=== PATIENT | female | born 1960 | race Caucasian/White ===

== ENCOUNTER → 2017-12-15 | Outpatient (CLI) | payer OTHER ==
[~2017-12-15] MED LIST: AMITRIPTYLINE25 MG PO; CALCIUM + D 5001 TAB PO; CEPHALEXIN500 M1 PO; CIPRO500 MG PO; CLINDAMYCIN HC300 MG PO; ENJUVIA0.625 MG PO; ENTOCORT3 MG PO; HYDROCODONE BIT1 T11 PO; IBUPROFEN200 M2 PO; IMURAN50 MG PO; MELOXICAM15 MG PO; MONODOX50 MG PO; NIZATIDINE150 MG PO; PENICILLIN V500 MG PO; PREDNISONE10 MG PO; SPIRONOLACTONE/1 TAB PO; SYNTHROID0.15 MG PO; THYROXIN PO; VICODIN 5/500 505 MG PO; VOLTAREN75 MG PO; ZOFRAN ODT4 MG SL; ZOLPIDEM10 M1 PO; ZOLPIDEM10 MG PO
[2017-12-15 14:47] LABS: BUN 19 mg/dl (7-24); CHLORIDE 107 mmol/L (98-107); CREATININE 0.94 mg/dL (0.55-1.02); POTASSIUM 4.1 mmol/L (3.5-5.1); SODIUM 143 mmol/L (136-145)
== END | disposition home or self-care (01) ==
LOC: LAB 14:09
PROVIDERS: Internal Medicine
DX: G45.8 Other transient cerebral ischemic attacks and related syndromes (principal); R20.2 Paresthesia of skin

== ENCOUNTER → 2017-12-22 | Outpatient (CLI) | payer OTHER | END | disposition home or self-care (01) | LOC: CT 12-21 13:00 → US 12-21 13:30 → CT 12:13 | DX: I65.23 Occlusion and stenosis of bilateral carotid arteries (principal) ==

== ENCOUNTER → 2017-12-23 | Outpatient (CLI) | payer OTHER | END | disposition home or self-care (01) | LOC: CARD 02:15 | DX: G45.8 Other transient cerebral ischemic attacks and related syndromes (principal) ==

== ENCOUNTER 2018-09-03 09:45 | Emergency (ER) | payer OTHER ==
[2018-09-03 10:10] LABS: BASO # 0.1 10*3/uL (0.0-0.1); BASO % 0.6 % (0.0-1.0); EOS # 0.1 10*3/uL (0.0-0.4); EOS % 1.4 % (1.0-4.0); HEMATOCRIT 42.5 % (37.0-47.0); HEMOGLOBIN 13.8 g/dl (12.0-16.0); LYMPH # 2.5 10*3/uL (1.3-4.4); MEAN CELL VOLUME 88.2 fl (81.0-99.0); MEAN CORPUSCULAR HGB 28.6 pg (27.0-31.0); MEAN CORPUSCULAR HGB CONC 32.5 g/dl (33.0-37.0); MONO # 0.7 10*3/uL (0.1-1.0); MONO % 8.2 % (3.0-9.0); NEUT # 5.2 10*3/uL (2.3-7.9); NEUT % 59.8 % (47.0-73.0); PLATELET COUNT AUTOMATED 201 10*3/uL (130-400); RED BLOOD COUNT 4.82 10*6/uL (4.10-5.10); RED CELL DISTRI WIDTH 14.4 % (0-14.5); WHITE BLOOD COUNT 8.6 10*3/uL (4.8-10.8)
[2018-09-03 10:18] LABS: ACT PARTIAL THROMBO TIME 29.5 SECONDS (20.8-31.5); INTERNATIONAL NORM RATIO 0.9 (2.0-3.5)
[2018-09-03 10:26] LABS: ALBUMIN 3.5 gm/dl (3.1-4.5); ALKALINE PHOSPHATASE 126 U/L (45-117); BUN 17 mg/dl (7-24); CHLORIDE 105 mmol/L (98-107); CREATININE 0.92 mg/dL (0.55-1.02); LIPASE 112 U/L (73-393); POTASSIUM 3.5 mmol/L (3.5-5.1); SGOT/AST 29 IU/L (3-35); SGPT/ALT 44 U/L (12-78); SODIUM 141 mmol/L (136-145)
[2018-09-03 12:00] LABS: BILIRUBIN 1+ (NEGATIVE); BLOOD 3+ (NEGATIVE); CLARITY SL CLOUDY (CLEAR); COLOR ORANGE (YELLOW); GLUCOSE TRACE (NEGATIVE); KETONE NEGATIVE (NEGATIVE); NITRITE POSITIVE (NEGATIVE); PH 6.5 (5.0-9.0); SPECIFIC GRAVITY <= 1.005 (1.005-1.030)
[2018-09-03 12:10] LABS: BACTERIA 3+; LEUKO ESTERASE TRACE (NEGATIVE); RBC 41-50 rbc/hpf (0-2); WBC 16-20 wbc/hpf (0-5)
== END 2018-09-03 13:31 | disposition short-term general hospital (02) ==
LOC: ED 09:45
PROVIDERS: Emergency Medicine
DX: N13.2 Hydronephrosis with renal and ureteral calculous obstruction (principal); R06.02 Shortness of breath; E66.01 Morbid (severe) obesity due to excess calories; Z90.710 Acquired absence of both cervix and uterus; Z88.2 Allergy status to sulfonamides; Z88.6 Allergy status to analgesic agent; Z91.040 Latex allergy status; Z79.2 Long term (current) use of antibiotics; Z79.899 Other long term (current) drug therapy

== ENCOUNTER → 2019-05-09 | Outpatient (CLI) | payer OTHER | END | disposition home or self-care (01) | LOC: RAD 15:53 | DX: Z96.0 Presence of urogenital implants (principal); N20.0 Calculus of kidney; Z90.49 Acquired absence of other specified parts of digestive tract ==

== ENCOUNTER → 2019-05-23 | Outpatient (CLI) | payer OTHER | END | disposition home or self-care (01) | LOC: RAD 14:15 | DX: N20.0 Calculus of kidney (principal); Z90.49 Acquired absence of other specified parts of digestive tract ==

== ENCOUNTER → 2019-05-24 | Outpatient (CLI) | payer OTHER ==
[2019-05-24 11:50] LABS: BILIRUBIN NEGATIVE (NEGATIVE); BLOOD NEGATIVE (NEGATIVE); CLARITY SL CLOUDY (CLEAR); COLOR YELLOW (YELLOW); GLUCOSE NEGATIVE (NEGATIVE); KETONE NEGATIVE (NEGATIVE); LEUKO ESTERASE 1+ (NEGATIVE); NITRITE NEGATIVE (NEGATIVE); UROBILINOGEN 0.2 E.U./dl (0.2-1.0)
[2019-05-24 11:55] LABS: BASO # 0.1 10*3/uL (0.0-0.1); BASO % 0.5 % (0.0-1.0); EOS # 0.1 10*3/uL (0.0-0.4); EOS % 0.6 % (1.0-4.0); HEMATOCRIT 41.6 % (37.0-47.0); LYMPH # 2.1 10*3/uL (1.3-4.4); MEAN CELL VOLUME 89.5 fl (81.0-99.0); MEAN CORPUSCULAR HGB CONC 31.3 g/dl (33.0-37.0); MEAN PLATELET VOLUME 10.4 fl (9.6-12.3); MONO # 0.8 10*3/uL (0.1-1.0); MONO % 7.3 % (3.0-9.0); NEUT # 7.5 10*3/uL (2.3-7.9); NEUT % 70.8 % (47.0-73.0); PLATELET COUNT AUTOMATED 212 10*3/uL (130-400); RED BLOOD COUNT 4.65 10*6/uL (4.10-5.10); WHITE BLOOD COUNT 10.6 10*3/uL (4.8-10.8)
[2019-05-24 12:16] LABS: ALBUMIN 3.6 gm/dl (3.1-4.5); ALKALINE PHOSPHATASE 113 U/L (45-117); BUN 18 mg/dl (7-24); CHLORIDE 109 mmol/L (98-107); CREATININE 0.74 mg/dL (0.55-1.02); POTASSIUM 4.1 mmol/L (3.5-5.1); SGOT/AST 23 IU/L (3-35); SGPT/ALT 32 U/L (12-78); SODIUM 143 mmol/L (136-145); T3 UPTAKE 36 % (31-39); THYROXINE (T4) TOTAL 13.7 ug/dl (4.8-13.9); TOTAL PROTEIN 7.9 gm/dL (6.4-8.2)
[2019-05-24 12:19] LABS: ALBUMIN 3.6 gm/dl (3.1-4.5); BILIRUBIN, DIRECT 0.2 mg/dL (0.0-0.2); TOTAL PROTEIN 7.7 gm/dL (6.4-8.2)
[2019-05-24 14:26] LABS: BACTERIA 1+; MUCOUS 1+; WBC 21-30 wbc/hpf (0-5)
== END | disposition home or self-care (01) ==
LOC: LAB 11:21
PROVIDERS: Internal Medicine Gastroenterology; Urology
DX: N20.0 Calculus of kidney (principal); R31.9 Hematuria, unspecified; K75.4 Autoimmune hepatitis

== ENCOUNTER → 2019-05-26 | Outpatient (CLI) | payer OTHER ==
[2019-06-02 15:05] LABS: BUSHITE 0.08 ratio (0.00-3.00); CALCIUM OXALATE 4.28 ratio (0.00-6.00); CALCIUM, URINE 4.8 mg/dL (Not Estab.); CALCIUM, URINE 87.6 mg/24 hr (100.0-300.0); CITRIC ACID (CITRATE) 635 mg/24 hr (320-1240); CREATININE, URINE 1012.9 mg/24 hr (800.0-1800.0); CREATININE, URINE 55.5 mg/dL (Not Estab.); MAGNESIUM, URINE 6.6 mg/dL (Not Estab.); OSMOLALITY, URINE 582 (300-900); SODIUM, URINE 127 mmol/L (Not Estab.); SODIUM, URINE 232 (39-258); STRUVITE 0.01 ratio (0.00-1.00); pH 24 HR URINE 5.2 (.)
== END | disposition home or self-care (01) ==
LOC: LAB 10:35
PROVIDERS: Urology
DX: N20.0 Calculus of kidney (principal); R31.9 Hematuria, unspecified

== ENCOUNTER → 2019-06-22 | Outpatient (CLI) | payer OTHER | END | disposition home or self-care (01) | LOC: CT 10:00 | DX: K43.9 Ventral hernia without obstruction or gangrene (principal); N20.0 Calculus of kidney; Z90.710 Acquired absence of both cervix and uterus; Z90.49 Acquired absence of other specified parts of digestive tract; Z90.89 Acquired absence of other organs ==

== ENCOUNTER 2020-06-08 06:17 | Inpatient (IN) | payer OTHER ==
[2020-06-08] VITALS (13 sets, daily range): BP systolic 115–168; BP diastolic 62–106
[~2020-06-08] VITALS: Ht 175.2 cm; Wt 135.9 kg
[~2020-06-08 06:17] MED LIST changes: +ALDACTONE25 MG PO; +AMITRIPTYLINE50 MG PO; +BUDESONIDE EC3 MG PO; +FAMOTIDINE40 MG PO; +HYDROCHLOROTHIA25 M1 PO; +KLOR-CON M1010 ME1 PO; +SYNTHROID,LEV175 MCG PO; +VITAMIN D350 MC2 PO; +ZOLPIDEM TART5 MG PO
[2020-06-08 07:22] LABS: HEMATOCRIT 51.9 % (37.0-47.0); MEAN CELL VOLUME 88.3 fl (81.0-99.0); MEAN CORPUSCULAR HGB 27.7 pg (27.0-31.0); MEAN CORPUSCULAR HGB CONC 31.4 g/dl (33.0-37.0); PLATELET COUNT AUTOMATED 259 10*3/uL (130-400); RED BLOOD COUNT 5.88 10*6/uL (4.10-5.10); RED CELL DISTRI WIDTH 14.6 % (0-14.5); WHITE BLOOD COUNT 20.5 10*3/uL (4.8-10.8)
[2020-06-08 07:34] LABS: ACT PARTIAL THROMBO TIME 27.3 SECONDS (20.0-32.1); INTERNATIONAL NORM RATIO 0.9 (2.0-3.5)
[2020-06-08 07:47] LABS: ATYPICAL LYMPHS 2 % (0-0); BASOPHILS 2 % (0-1); PLATELET SUFFICIENCY NORMAL (NORMAL); TOTAL CELLS COUNTED 100 #CELLS
[2020-06-08 07:49] LABS: ALBUMIN 4.1 gm/dl (3.1-4.5); CREATININE 1.21 mg/dL (0.55-1.02); POTASSIUM 3.4 mmol/L (3.5-5.1); TOTAL PROTEIN 8.7 gm/dL (6.4-8.2)
--- NOTE | 2020-06-08 08:18 | NUR ---
PT HAD LARGE EMESIS IN HER BED. DR. ARIAS AWARE. BED AND GOWN CHANGED. PT MEDICATED WITH ZOFRAN IV
--- NOTE | 2020-06-08 08:31 | NUR ---
PT TRANSPORTED TO CT.
--- NOTE | 2020-06-08 09:29 | NUR ---
PT C/O PAIN AND NAUSEA. MEDICATED WITH ZOFRAN AND DEMEROL PER PHYSICIAN ORDERS.
--- NOTE | 2020-06-08 09:36 | NUR ---
RESTING IN BED WITH EYES CLOSED. POX DROPPING TO 86% ON ROOM AIR WHILE SLEEPING. AROUSES EASILY. PLACED ON 2L NC.
--- NOTE | 2020-06-08 14:40 | NUR ---
PT RESTING IN BED WITH EYES CLOSED. RESPIRATIONS EASY AND REGULAR. CALL LIGHT IN PLACE.
--- NOTE | 2020-06-08 15:21 | NUR ---
CALLED CONSULT TO DR. HAGEN. MADE HIM AWARE OF ABNORMAL ECG.
--- NOTE | 2020-06-08 15:59 | NUR ---
PATIENT RESTING IN BED WITH EYES CLOSED. RESPIRATIONS EASY AND REGULAR. CALL LIGHT IN REACH.
--- NOTE | 2020-06-08 19:14 | NUR ---
RECEIVED REPORT FROM ETHAN MOLINA.
--- NOTE | 2020-06-08 20:25 | NUR ---
A 59, admitted to 5E, under the services of HORTENCIA Berger DO with a diagnosis of BOWEL OBSTRUCTION. Chief complaint is ABDOMINAL PAIN. Patient arrived via ambulatory from ER. Monitor applied. Initial assessment completed. Vital signs taken and recorded. HORTENCIA BERGER DO notified of admission to the unit. Orders received. See assessment for past medical history, medications and allergies. Patient and/or family oriented to unit. visitation policy reviewed. Clothing/patient valuable form completed. MAHENDRA SIEGEL
--- NOTE | 2020-06-08 22:41 | NUR ---
PATIENT MEDICATED WITH DILAUDID FOR COMPLAINTS OF ABDOMINAL PAIN AND ZOFRAN FOR COMPLAINTS OF NAUSEA. WILL MONITOR FOR EFFECTIVENESS. CALL LIGHT IN REACH.
--- NOTE | 2020-06-08 23:04 | NUR ---
MORPHINE AND ZOFRAN EFFECTIVE AT THIS TIME. WILL CONTINUE TO MONITOR.
[2020-06-09] VITALS: BP 145/78
--- NOTE | 2020-06-09 01:33 | NUR ---
PATIENT MEDICATED WITH DILAUDID FOR COMPLAINTS OF ABDOMINAL PAIN AND PHENERGAN FOR COMPLAINTS OF NAUSEA. WILL MONITOR FOR EFFECTIVENESS. CALL LIGHT IN REACH.
--- NOTE | 2020-06-09 02:16 | NUR ---
DILAUDID EFFECTIVE AT THIS TIME. PATIENT SLEEPING IN BED. NO SIGNS OR SYMPTOMS OF DISTRESS NOTED. CALL LIGHT IN REACH.
[2020-06-09 06:39] LABS: HEMATOCRIT 47.4 % (37.0-47.0); MEAN CELL VOLUME 91.3 fl (81.0-99.0); MEAN CORPUSCULAR HGB 28.1 pg (27.0-31.0); MEAN CORPUSCULAR HGB CONC 30.8 g/dl (33.0-37.0); MEAN PLATELET VOLUME 10.2 fl (9.6-12.3); PLATELET COUNT AUTOMATED 236 10*3/uL (130-400); RED BLOOD COUNT 5.19 10*6/uL (4.10-5.10); RED CELL DISTRI WIDTH 15.4 % (0-14.5); WHITE BLOOD COUNT 12.8 10*3/uL (4.8-10.8)
[2020-06-09 06:56] LABS: CREATININE 1.15 mg/dL (0.55-1.02); POTASSIUM 3.4 mmol/L (3.5-5.1)
[2020-06-09 08:00] VITALS: BP 136/88
[2020-06-09 08:26] LABS: ATYPICAL LYMPHS 5 % (0-0); PLATELET SUFFICIENCY NORMAL (NORMAL); TOTAL CELLS COUNTED 100 #CELLS
--- NOTE | 2020-06-09 09:40 | NUR ---
PT MEDICATED WITH ZOFRAN FOR C/O NAUSEA. WILL MONITOR
--- NOTE | 2020-06-09 10:00 | NUR ---
NG CLAMPED ORDERED
--- NOTE | 2020-06-09 10:10 | NUR ---
PT STATES THAT ALLEN HELPED JEAN MONITOR
[2020-06-09 12:00] VITALS: BP 155/94
--- NOTE | 2020-06-09 15:09 | NUR ---
DR MAGDALENO NOTIFIED THAT PT REFUSED 2ND K RUN
[2020-06-09 16:00] VITALS: BP 146/75
--- NOTE | 2020-06-09 16:45 | NUR ---
PT RESTING IN BED NO DISTRESS NOTED. WILL MONITOR
--- NOTE | 2020-06-09 18:05 | NUR ---
PT REQUESTED AND GIVEN ZOFRAN FOR C/O LITTLE NAUSEA. WILL MONITOR
--- NOTE | 2020-06-09 18:50 | NUR ---
PT STATES THAT ZOFRAN IS EFFECTIVE. WILL MONITOR
[2020-06-09 20:00] VITALS: BP 133/80
[2020-06-10] VITALS: BP 137/75
[2020-06-10 08:00] VITALS: BP 133/79
[2020-06-10 09:03] LABS: BASO # 0.1 10*3/uL (0.0-0.1); BASO % 0.6 % (0.0-1.0); EOS # 0.2 10*3/uL (0.0-0.4); EOS % 1.9 % (1.0-4.0); HEMATOCRIT 47.1 % (37.0-47.0); LYMPH # 2.4 10*3/uL (1.3-4.4); LYMPH % 21.4 % (27.0-41.0); MEAN CELL VOLUME 90.9 fl (81.0-99.0); MEAN CORPUSCULAR HGB 27.6 pg (27.0-31.0); MEAN CORPUSCULAR HGB CONC 30.4 g/dl (33.0-37.0); MEAN PLATELET VOLUME 10.5 fl (9.6-12.3); MONO # 1.3 10*3/uL (0.1-1.0); MONO % 11.8 % (3.0-9.0); NEUT # 7.2 10*3/uL (2.3-7.9); NEUT % 63.3 % (47.0-73.0); PLATELET COUNT AUTOMATED 200 10*3/uL (130-400); RED BLOOD COUNT 5.18 10*6/uL (4.10-5.10); WHITE BLOOD COUNT 11.3 10*3/uL (4.8-10.8)
[2020-06-10 09:18] LABS: CHLORIDE 109 mmol/L (98-107); CREATININE 0.86 mg/dL (0.55-1.02); POTASSIUM 3.8 mmol/L (3.5-5.1); SODIUM 140 mmol/L (136-145)
[2020-06-10 09:21] LABS: BUN 16 mg/dl (7-24)
--- NOTE | 2020-06-10 10:00 | NUR ---
NG TUBE REMOVED PER ORDER. PT TOLERATED WELL.
[2020-06-10 12:00] VITALS: BP 133/82
--- NOTE | 2020-06-10 12:34 | NUR ---
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 Patient states lives at HOME with . There are NO steps in the home. Physician: EDI PINK Pharmacy: [facility] [place] [facility] services: NONE Patient's level of ADLs: INDEPENDENT Patient has working utilities: YES DME: NONE Follow-up physician's appointment after d/c: WILL BE MADE BY HOSPITALIST NURSE DIRECTOR ON DISCHARGE Does patient want to access PORTAL?: NO Discharge plan PT LIVES AT HOME WITH HER AND KIDS AND IS INDEPENDENT IN HER CARE. DENIES SHE WILL HAVE ANY NEEDS ON DISCHARGE. PLAN IS TO RETURN HOME WHEN MEDICALLY STABLE. WILL CONTINUE TO FOLLOW. STATES HER WILL TAKE HER HOME.. DAYSI SOTO
--- NOTE | 2020-06-10 14:45 | NUR ---
STEVE RN TO THE FLOOR TO START IV ON PATIENT. NEW IV STARTED IN RIGHT WRIST WITHOUT INCIDENT. PT TOLERATED WELL.
--- NOTE | 2020-06-10 17:13 | NUR ---
Discharge instructions reviewed with patient/family. Patient receptive and verbalizes understanding. Follow-up care arranged. Written instructions given to patient/family. CHI DORSEY
== END 2020-06-10 17:13 | disposition home or self-care (01) | DRG 388 ==
LOC: ED 06:17 → EDHOLD 11:09 → 5E 11:09
PROVIDERS: Emergency Medicine; Internal Medicine; ADMIT Internal Medicine; ATTEND Internal Medicine
PROC: 0D9670Z Drainage of Stomach with Drainage Device, Via Natural or Artificial Opening (ICD-10-PCS; principal; 2020-06-08)
DX: K56.690 Other partial intestinal obstruction (principal); N17.0 Acute kidney failure with tubular necrosis; R65.10 Systemic inflammatory response syndrome (SIRS) of non-infectious origin without acute organ dysfunction; E87.2 Acidosis; Z68.41 Body mass index [BMI] 40.0-44.9, adult; E87.6 Hypokalemia; R73.9 Hyperglycemia, unspecified; R00.1 Bradycardia, unspecified; R74.01 Elevation of levels of liver transaminase levels; I10 Essential (primary) hypertension; E03.9 Hypothyroidism, unspecified; G47.00 Insomnia, unspecified; E83.41 Hypermagnesemia; E66.01 Morbid (severe) obesity due to excess calories; Z82.3 Family history of stroke; Z88.2 Allergy status to sulfonamides; Z88.8 Allergy status to other drugs, medicaments and biological substances; Z91.040 Latex allergy status; Z79.899 Other long term (current) drug therapy; Z93.3 Colostomy status; Z90.49 Acquired absence of other specified parts of digestive tract; Z90.710 Acquired absence of both cervix and uterus; Z90.6 Acquired absence of other parts of urinary tract

== ENCOUNTER → 2021-03-24 | Outpatient (CLI) | payer OTHER | END | disposition home or self-care (01) | LOC: CARD 08:01 | PROVIDERS: ATTEND Physician Assistant | DX: Z01.818 Encounter for other preprocedural examination (principal); I34.0 Nonrheumatic mitral (valve) insufficiency; R94.31 Abnormal electrocardiogram [ECG] [EKG] ==

== ENCOUNTER 2021-12-31 10:15 | Observation (INO) | payer OTHER ==
[2021-12-31] VITALS (10 sets, daily range): BP systolic 125–142; BP diastolic 74–95
[~2021-12-31] VITALS: Ht 172.7 cm; Wt 129.4 kg
[2021-12-31 15:26] LABS: BASO # 0.1 10*3/uL (0.0-0.1); BASO % 0.4 % (0.0-1.0); EOS % 0.2 % (1.0-4.0); HEMATOCRIT 47.4 % (37.0-47.0); LYMPH # 1.4 10*3/uL (1.3-4.4); LYMPH % 9.4 % (27.0-41.0); MEAN CELL VOLUME 88.4 fl (81.0-99.0); MEAN CORPUSCULAR HGB CONC 31.6 g/dl (33.0-37.0); MEAN PLATELET VOLUME 9.7 fl (9.6-12.3); MONO # 1.3 10*3/uL (0.1-1.0); NEUT # 11.9 10*3/uL (2.3-7.9); NEUT % 79.7 % (47.0-73.0); PLATELET COUNT AUTOMATED 223 10*3/uL (130-400); RED BLOOD COUNT 5.36 10*6/uL (4.10-5.10); RED CELL DISTRI WIDTH 16.9 % (0-14.5); WHITE BLOOD COUNT 14.9 10*3/uL (4.8-10.8)
[2021-12-31 15:40] LABS: ALKALINE PHOSPHATASE 103 U/L (45-117); BUN 21 mg/dl (7-24); CHLORIDE 103 mmol/L (98-107); CREATININE 1.06 mg/dL (0.55-1.02); POTASSIUM 3.8 mmol/L (3.5-5.1); SGOT/AST 34 IU/L (3-35); SGPT/ALT 58 U/L (12-78); SODIUM 139 mmol/L (136-145); TOTAL PROTEIN 7.9 gm/dL (6.4-8.2)
[2021-12-31] MEDS ORDERED: ORAZINC50 MG PO (16:12)
[2021-12-31] MEDS ORDERED: METOPROLOL SUCC25 M2 PO (16:12)
[2021-12-31] MEDS ORDERED: MELOXICAM15 MG PO (16:14)
[2022-01-01 06:10] LABS: HEMATOCRIT 44.8 % (37.0-47.0); MEAN CELL VOLUME 87.3 fl (81.0-99.0); MEAN CORPUSCULAR HGB 27.7 pg (27.0-31.0); MEAN CORPUSCULAR HGB CONC 31.7 g/dl (33.0-37.0); PLATELET COUNT AUTOMATED 217 10*3/uL (130-400); RED BLOOD COUNT 5.13 10*6/uL (4.10-5.10); RED CELL DISTRI WIDTH 16.7 % (0-14.5); WHITE BLOOD COUNT 13.5 10*3/uL (4.8-10.8)
[2022-01-01 06:11] LABS: MANUAL DIFF REFLEX YES
[2022-01-01 06:27] LABS: CREATININE 1.6 mg/dL (0.55-1.02); POTASSIUM 4.2 mmol/L (3.5-5.1); TOTAL PROTEIN 7.2 gm/dL (6.4-8.2)
[2022-01-01 06:56] LABS: BURR CELLS FEW; POLYCHROMASIA SLIGHT; TOTAL CELLS COUNTED 100 #CELLS
[2022-01-01 06:57] LABS: PLATELET SUFFICIENCY NORMAL (NORMAL); VACUOLATION OF NEUTROPHILS SLIGHT
[2022-01-01 08:00] VITALS: BP 180/102
[2022-01-01 12:00] VITALS: BP 152/85
[2022-01-01 16:00] VITALS: BP 139/75
[2022-01-01 20:00] VITALS: BP 157/101
[2022-01-02] VITALS: BP 155/89
[2022-01-02 06:12] LABS: CREATININE 1.76 mg/dL (0.55-1.02); HEMATOCRIT 43.6 % (37.0-47.0); MEAN CELL VOLUME 89.5 fl (81.0-99.0); MEAN CORPUSCULAR HGB 27.7 pg (27.0-31.0); MEAN PLATELET VOLUME 9.8 fl (9.6-12.3); PLATELET COUNT AUTOMATED 199 10*3/uL (130-400); POTASSIUM 3.5 mmol/L (3.5-5.1); RED BLOOD COUNT 4.87 10*6/uL (4.10-5.10); RED CELL DISTRI WIDTH 16.7 % (0-14.5); WHITE BLOOD COUNT 11.8 10*3/uL (4.8-10.8)
[2022-01-02 06:14] LABS: MANUAL DIFF REFLEX YES
[2022-01-02 07:02] LABS: PLATELET SUFFICIENCY NORMAL (NORMAL); POLYCHROMASIA SLIGHT; TOTAL CELLS COUNTED 100 #CELLS
[2022-01-02 08:00] VITALS: BP 132/95
[2022-01-02 12:00] VITALS: BP 152/71
[2022-01-02 16:00] VITALS: BP 151/95
[2022-01-02 20:00] VITALS: BP 145/69
[2022-01-03] VITALS: BP 143/91
[2022-01-03 05:21] LABS: CREATININE 1.45 mg/dL (0.55-1.02); POTASSIUM 3.5 mmol/L (3.5-5.1)
[2022-01-03 06:05] LABS: BASO # 0.1 10*3/uL (0.0-0.1); BASO % 0.5 % (0.0-1.0); EOS # 0.2 10*3/uL (0.0-0.4); EOS % 2.2 % (1.0-4.0); HEMATOCRIT 39.9 % (37.0-47.0); LYMPH # 1.7 10*3/uL (1.3-4.4); LYMPH % 17.5 % (27.0-41.0); MEAN CELL VOLUME 89.3 fl (81.0-99.0); MEAN CORPUSCULAR HGB CONC 31.3 g/dl (33.0-37.0); MEAN PLATELET VOLUME 10.1 fl (9.6-12.3); NEUT # 6.4 10*3/uL (2.3-7.9); NEUT % 67.3 % (47.0-73.0); PLATELET COUNT AUTOMATED 195 10*3/uL (130-400); RED BLOOD COUNT 4.47 10*6/uL (4.10-5.10); RED CELL DISTRI WIDTH 16.2 % (0-14.5); WHITE BLOOD COUNT 9.5 10*3/uL (4.8-10.8)
[2022-01-03 08:00] VITALS: BP 163/60
[2022-01-03 12:00] VITALS: BP 159/69
[2022-01-03] MEDS ORDERED: METRONIDAZOLE500 M1 PO ×2 (15:28)
[2022-01-03] MEDS ORDERED: LEVOFLOXACIN750 M2 PO (15:28)
[2022-01-03 16:00] VITALS: BP 137/65
[2022-01-03 20:00] VITALS: BP 159/56
[2022-01-04] VITALS: BP 143/63
[2022-01-04 05:59] LABS: CREATININE 1.3 mg/dL (0.55-1.02); POTASSIUM 3.4 mmol/L (3.5-5.1)
[2022-01-04 06:10] LABS: HEMATOCRIT 38.8 % (37.0-47.0); MEAN CELL VOLUME 88.8 fl (81.0-99.0); MEAN CORPUSCULAR HGB 28.1 pg (27.0-31.0); MEAN CORPUSCULAR HGB CONC 31.7 g/dl (33.0-37.0); MEAN PLATELET VOLUME 10.5 fl (9.6-12.3); PLATELET COUNT AUTOMATED 205 10*3/uL (130-400); RED BLOOD COUNT 4.37 10*6/uL (4.10-5.10); WHITE BLOOD COUNT 7.9 10*3/uL (4.8-10.8)
[2022-01-04 06:23] LABS: MANUAL DIFF REFLEX YES
[2022-01-04 06:39] LABS: TOTAL CELLS COUNTED 100 #CELLS
[2022-01-04 06:40] LABS: PLATELET SUFFICIENCY NORMAL (NORMAL); POLYCHROMASIA SLIGHT
[2022-01-04 08:00] VITALS: BP 123/66
== END 2022-01-04 11:45 | disposition home or self-care (01) ==
LOC: ED 10:15 → EDHOLD 14:46 → 4E 14:46
PROVIDERS: Family Medicine; Internal Medicine; ADMIT Internal Medicine; ATTEND Internal Medicine
DX: K56.600 Partial intestinal obstruction, unspecified as to cause (principal); S31.109A Unspecified open wound of abdominal wall, unspecified quadrant without penetration into peritoneal cavity, initial encounter; R11.2 Nausea with vomiting, unspecified; E66.9 Obesity, unspecified; R00.1 Bradycardia, unspecified; R10.9 Unspecified abdominal pain; D72.829 Elevated white blood cell count, unspecified; E87.2 Acidosis; E44.0 Moderate protein-calorie malnutrition; E87.8 Other disorders of electrolyte and fluid balance, not elsewhere classified; I10 Essential (primary) hypertension; N17.0 Acute kidney failure with tubular necrosis; R73.9 Hyperglycemia, unspecified; Z79.899 Other long term (current) drug therapy; Z79.01 Long term (current) use of anticoagulants

== ENCOUNTER → 2022-01-08 | Outpatient (CLI) | payer OTHER ==
[~2022-01-08] MED LIST changes: +LEVOFLOXACIN750 M2 PO; +METOPROLOL SUCC25 M2 PO; +METRONIDAZOLE500 M1 PO; +ORAZINC50 MG PO
== END | disposition home or self-care (01) ==
LOC: WOUNDCARE 01:46
PROVIDERS: ATTEND Nurse Practitioner Family
DX: S81.801A Unspecified open wound, right lower leg, initial encounter (principal); L97.812 Non-pressure chronic ulcer of other part of right lower leg with fat layer exposed; L89.893 Pressure ulcer of other site, stage 3; E66.9 Obesity, unspecified; E03.9 Hypothyroidism, unspecified; G47.00 Insomnia, unspecified; I10 Essential (primary) hypertension; K21.9 Gastro-esophageal reflux disease without esophagitis; F32.9 Major depressive disorder, single episode, unspecified; Z68.41 Body mass index [BMI] 40.0-44.9, adult; Z90.49 Acquired absence of other specified parts of digestive tract; Z93.3 Colostomy status; Z90.710 Acquired absence of both cervix and uterus; X58.XXXA Exposure to other specified factors, initial encounter; Y93.89 Activity, other specified; Y92.89 Other specified places as the place of occurrence of the external cause; Y99.8 Other external cause status

== ENCOUNTER → 2022-01-16 | Outpatient (CLI) | payer OTHER | END | disposition home or self-care (01) | LOC: WOUNDCARE 07:15 | PROVIDERS: ATTEND Nurse Practitioner Family | DX: S81.801D Unspecified open wound, right lower leg, subsequent encounter (principal); L97.812 Non-pressure chronic ulcer of other part of right lower leg with fat layer exposed; L89.893 Pressure ulcer of other site, stage 3; E66.9 Obesity, unspecified; E03.9 Hypothyroidism, unspecified; G47.00 Insomnia, unspecified; I10 Essential (primary) hypertension; K21.9 Gastro-esophageal reflux disease without esophagitis; F32.9 Major depressive disorder, single episode, unspecified; Z90.49 Acquired absence of other specified parts of digestive tract; Z93.3 Colostomy status; Z90.710 Acquired absence of both cervix and uterus; X58.XXXD Exposure to other specified factors, subsequent encounter ==

== ENCOUNTER → 2022-01-22 | Outpatient (CLI) | payer OTHER | LOC: WOUNDCARE 03:09 | PROVIDERS: ATTEND Nurse Practitioner Family | DX: S81.801D Unspecified open wound, right lower leg, subsequent encounter (principal); L97.812 Non-pressure chronic ulcer of other part of right lower leg with fat layer exposed; L89.893 Pressure ulcer of other site, stage 3; E66.9 Obesity, unspecified; E03.9 Hypothyroidism, unspecified; G47.00 Insomnia, unspecified; I10 Essential (primary) hypertension; K21.9 Gastro-esophageal reflux disease without esophagitis; F32.9 Major depressive disorder, single episode, unspecified; Z90.49 Acquired absence of other specified parts of digestive tract; Z93.3 Colostomy status; Z90.710 Acquired absence of both cervix and uterus; Z68.41 Body mass index [BMI] 40.0-44.9, adult; X58.XXXD Exposure to other specified factors, subsequent encounter ==

== ENCOUNTER → 2022-01-27 | Outpatient (CLI) | payer OTHER | END | disposition home or self-care (01) | LOC: US 12:41 | PROVIDERS: ATTEND Nurse Practitioner Family | DX: L97.919 Non-pressure chronic ulcer of unspecified part of right lower leg with unspecified severity (principal) ==

== ENCOUNTER → 2022-01-29 | Outpatient (CLI) | payer OTHER | END | disposition home or self-care (01) | LOC: WOUNDCARE 01:26 | PROVIDERS: ATTEND Nurse Practitioner Family | DX: S81.801D Unspecified open wound, right lower leg, subsequent encounter (principal); L97.812 Non-pressure chronic ulcer of other part of right lower leg with fat layer exposed; L89.893 Pressure ulcer of other site, stage 3; E66.9 Obesity, unspecified; E03.9 Hypothyroidism, unspecified; G47.00 Insomnia, unspecified; I10 Essential (primary) hypertension; K21.9 Gastro-esophageal reflux disease without esophagitis; F32.9 Major depressive disorder, single episode, unspecified; Z90.49 Acquired absence of other specified parts of digestive tract; Z93.3 Colostomy status; Z90.710 Acquired absence of both cervix and uterus; Z68.41 Body mass index [BMI] 40.0-44.9, adult; X58.XXXD Exposure to other specified factors, subsequent encounter ==

== ENCOUNTER → 2022-02-05 | Outpatient (CLI) | payer OTHER | END | disposition home or self-care (01) | LOC: WOUNDCARE 00:21 | PROVIDERS: ATTEND Nurse Practitioner Family | DX: S81.801D Unspecified open wound, right lower leg, subsequent encounter (principal); L97.812 Non-pressure chronic ulcer of other part of right lower leg with fat layer exposed; L89.893 Pressure ulcer of other site, stage 3; E66.9 Obesity, unspecified; E03.9 Hypothyroidism, unspecified; G47.00 Insomnia, unspecified; I10 Essential (primary) hypertension; K21.9 Gastro-esophageal reflux disease without esophagitis; F32.9 Major depressive disorder, single episode, unspecified; Z93.3 Colostomy status; Z90.710 Acquired absence of both cervix and uterus; Z90.49 Acquired absence of other specified parts of digestive tract; Z68.41 Body mass index [BMI] 40.0-44.9, adult; X58.XXXD Exposure to other specified factors, subsequent encounter ==